=== PATIENT | male | born 1950 | race Caucasian/White ===

== ENCOUNTER 2019-11-15 16:11 | Outpatient (CLI) | payer MEDICARE, BC ==
--- NOTE | 2019-11-15 16:48 | RAD ---
XR Ankle Rt 3 View STANDARD HISTORY: Right ankle pain and swelling FINDINGS: No fracture or dislocation is identified. The ankle mortise is maintained
--- NOTE | 2019-11-15 16:48 | RAD ---
XR Tib Fib Rt Leg 2 View HISTORY: Right leg swelling FINDINGS: The right tibia and fibula are intact. There are mild degenerative changes in the knee joint.
== END 2019-11-15 16:12 | disposition home or self-care (01) ==
LOC: BURRAD 16:11
PROVIDERS: ATTEND Nurse Practitioner Family
DX: M79.89 Other specified soft tissue disorders (principal)